=== PATIENT | male | born 1950 | race Caucasian/White ===

== ENCOUNTER 2022-08-25 07:40 | Outpatient (CLI) | payer MEDICARE, SELFPAY ==
--- NOTE | ~2022-08-25 | MR_ITS ---
EXAMINATION: MR lumbar spine wo con DATE: 08/25/2022 08:19 INDICATION: Low back pain. TECHNIQUE: Magnetic resonance imaging (MRI) of the lumbar spine was performed without intravenous con trast. Sequences included sagittal T2-weighted FSE, sagittal T2-weighted FS FSE, sagittal T1-weighted FSE, and axial T2-weighted FSE. COMPARISON: Lumbar spine radiographs 08/14/2022 FINDINGS: Bone alignment is normal. Vertebral body heights are normal. There is moderately decreased disc height at L1-L2 and mildly decreased disc height at L4-L5 and L5-S1. The distal spinal cord sign al intensity is normal. The conus medullaris is at L1. The following disc levels are specifically dis cussed: L1-L2: The disc is bulging and has an annular fissure. There is severe right and mild left facet join t osteoarthritis. There is mild bilateral neural foraminal stenosis. There is mild central canal sten osis. L2-L3: The disc is bulging. There is moderate right and mild left facet joint osteoarthritis. There i s mild bilateral neural foraminal stenosis. There is no central canal stenosis. L3-L4: The disc does not extend beyond the endplate margin. There is severe bilateral facet joint ost eoarthritis. There is mild bilateral neural foraminal stenosis. There is no central canal stenosis. L4-L5: The disc is bulging and has an annular fissure. There is severe bilateral facet joint osteoart hritis. There is mild bilateral neural foraminal stenosis. There is mild central canal stenosis. L5-S1: The disc is bulging and has an annular fissure. There is severe bilateral facet joint osteoart hritis. There is mild bilateral neural foraminal stenosis. There is mild central canal stenosis. IMPRESSION: 1. Moderate lumbar spondylosis. Reviewed, dictated and finalized at location A. OMIC DEVELOPMENT MANAGER
== END 2022-08-25 07:41 | disposition home or self-care (01) ==
PROVIDERS: PCP Family Medicine; Visit Provider Orthopaedic Surgery
DX: M48.00 Spinal stenosis, site unspecified (principal); M47.896 Other spondylosis, lumbar region
CPT/HCPCS: 72148

== ENCOUNTER 2025-03-26 13:26 | Outpatient (CLI) | payer MEDICARE, SELFPAY ==
--- NOTE | ~2025-03-26 | PE_ITS ---
EXAMINATION: PET_PETPSMAST_PT DATE: 03/26/2025 15:32 INDICATION: Prostate cancer TECHNIQUE: 5.255 mCi of Illucix Ga-68([id number]) was administered i.v. Low dose computed oliver graphy (CT) images were acquired from the base of the brain to the base of the brain to the proximal thighs for attenuation correction and anatomic localization. Positron emission tomography (PET) image s were acquired in the same distribution beginning 81 minutes after injection. Images including fused PET/CT images were reconstructed in axial, coronal, and sagittal planes. Automated exposure control technique was employed. The dose-length product was 1220.37mGy-cm. COMPARISON: None FINDINGS: Head/neck: Typical pattern of symmetric physiologic increased activity in the lacrimal, parotid and submandibula r glands as well as along the mucosa of the nasal and oral cavities, pharynx and hypopharynx. No path ologically enlarged cervical lymphadenopathy or suspicious foci of increased uptake in the visualized head or neck. Chest: Indeterminate 2 mm nodule in the right lung without evident activity, potentially a vijay fissural lym ph node along the minor fissure. There is also a small calcified likely para fissural lymph node antonio g the major fissure and a few calcified right hilar lymph nodes consistent with old granulomatous dis ease. No other suspicious pulmonary nodules or pleural effusion. Heart size is normal. No pericardial effusion. Thoracic aorta is normal in caliber. No pathologically enlarged or PSMA avid thoracic lymp hadenopathy. Abdomen/pelvis/proximal thighs: Physiologic renal accumulation and excretion of activity in the kidneys, bladder and along portions o f ureters. There is a small intensely PSMA avid nodule. Midline of the posterior aspect of the enlarg ed prostate suspicious for primary prostate cancer. Portions of the enlarged prostate are obscured by dense metallic streak artifact from a right total hip arthroplasty. Normal degree and slightly heter ogenous pattern of increased uptake throughout the liver and spleen without radiologic correlate or d ominant PSMA avid lesion. There is diffuse hepatic steatosis with focal sparing along the gallbladder fossa. The gallbladder, pancreas and bilateral adrenal glands are normal. Moderate uptake scattered throughout the bowels with typical duodenal and proximal jejunal predominance and without radiologic correlate, also likely physiologic. Mild scattered diverticulosis without adjacent from trace strandi ng to suggest diverticulitis. Moderate-sized fat-containing left inguinal hernia. Small bilateral hyd roceles. No other abnormal foci of increased uptake or pathologically enlarged lymphadenopathy in the abdomen, pelvis or proximal thighs. Musculoskeletal: Prominent mixed lytic and sclerotic subarticular lesion at the anterosuperior aspect of the left femo ral head which appears disproportionately 2 the otherwise mild osteoarthritis which is without abnorm al PSMA activity which appears chronic dating back to CT dated 06/06/2011 at which time similar lesion is seen at the contralateral right femoral head prior to the arthroplasty. Findings would be most co nsistent with bilateral osteonecrosis. No other suspicious lytic, blastic or abnormally PSMA avid bon e lesions. IMPRESSION: 1. Single focus of prominent uptake in the midline of the posterior prostate consistent with primary prostate cancer. No lesion suspicious for metastatic disease. 2. 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 3. Moderate-sized fat-containing left inguinal hernia with small bilateral hydroceles. 4. Indeterminate 2 mm nodule in the right lung along the minor fissure most likely a benign vijay fiss ural lymph node. If the patient is low risk for lung cancer, no follow-up is needed. If the patient i s high risk (i.e., history of smoking or asbestos or significant radiation exposure), optional follow -up chest CT could be considered at 12 months. Reviewed, dictated and finalized at location A. IMPRESSION: 1. Single focus of prominent uptake in the midline of the posterior prostate co nsistent with primary prostate cancer. No lesion suspicious for metastatic dise ase. 2. 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 3. Moderate-sized fat-containing left inguinal hernia with small bilateral hydr oceles. 4. Indeterminate 2 mm nodule in the right lung along the minor fissure most lik lilliam a benign vijay fissural lymph node. If the patient is low risk for lung canc er, no follow-up is needed. If the patient is high risk (i.e., history of smoki ng or asbestos or significant radiation exposure), optional follow-up chest CT could be considered at 12 months.
--- OUTSIDE RECORDS SUMMARY | 2025-03-26 13:29 | XMS_ITS | Clinical Summary ---
Author Organization [facility] Address [address] [place] [address] Care Team Providers Care House Officer Name Role Phone Yair Mitchell MD Primary Care Provider [phone] Allergies No known active allergies Medications finasteride 5 MG tablet Take 1 tablet (5 mg total) by mouth daily. Active losartan (COZAAR) 50 MG tablet Take 1 tablet (50 mg total) by mouth daily. Active atorvastatin (LIPITOR) 20 MG tablet Take 1 tablet (20 mg total) by mouth daily. Active chlorthalidone (HYGROTEN) 25 MG tablet Take 1 tablet (25 mg total) by mouth daily. Active montelukast (SINGULAIR) 10 MG tablet Take 1 tablet (10 mg total) by mouth nightly at bedtime. Active cetirizine (ZYRTEC) 10 MG tablet Take 1 tablet (10 mg total) by mouth daily. Active famotidine (PEPCID) 20 MG tablet Take 1 tablet (20 mg total) by mouth 2 (two) times daily as needed for Heartburn. Active Acetaminophen (TYLENOL) 325 MG Cap Take 1 tablet by mouth 2 (two) times a day. Active Cyanocobalamin (B-12) 2000 MCG Tab Take 1 tablet by mouth daily. Active aspirin EC 81 MG tablet Take 1 tablet (81 mg total) by mouth daily. Active losartan 25 MG tablet Take 1 tablet (25 mg total) by mouth daily. 03/03/20 25 Discontinu ed(Error) meloxicam (MOBIC) 15 MG tabletIndications :Other spondylosis with radiculopathy, lumbar region,Spinal stenosis of lumbar region without neurogenic claudication TAKE 1 TABLET (15 MG TOTAL) BY MOUTH DAILY. 30 tablet 1 3 03/03/20 25 Discontinu ed(Error) meloxicam (MOBIC) 15 MG tabletIndications :Lumbar radiculopathy Take 1 tablet (15 mg total) by mouth daily. 30 tablet 3 03/03/20 25 Discontinu ed(Error) Active Problems Problem Noted Date Diagnosed Date Neck pain 11/30/2023 Chronic midline low back pain without sciatica 0 11/30/2023 Encounters Date Type Department Care Team Description 03/11/2025 12:50 PM CDT - 03/11/2025 1:40 PM CDT Surgery [facility] [place] [address] Jeff Azul MD TRANSRECTAL ULTRASOUND FUSION GUIDED PROSTATE BIOPSY 03/11/2025 12:46 PM CDT Anesthesia Event [facility] [place] [address] Rosey Wahl MD Jarvis, Brittany L, DIRECTOR OF INDUSTRIAL RELATIONS 03/11/2025 11:10 AM CDT - 03/11/2025 2:17 PM CDT Hospital Encounter [facility] [place] [address] Jeff Azul MD Discharge Disposition: Home or Self Care (Routine Discharge) 03/11/2025 Travel 01/05/2025 10:25 AM CDT - 01/05/2025 11:59 PM CDT [place] [address] Isela Boland III, MD Discharge Disposition: Home or Self Care (Routine Discharge) 01/05/[address] [place] [address] Isela Boland III, MD 01/05/2025 Travel from Last 3 Months Social History Tobacco Use Types Packs/Day Years Used Date Smoking Tobacco: Former Cigarettes Smokeless Tobacco: Never Tobacco Cessation:Counseling Given: Not Answered Comments:Quit 40 years ago, smoked 5 years Alcohol Use Standard Drinks/Week Comments Not Currently 0 (1 standard drink = 0.6 oz pur e alcohol) Sex and Gender Information Value Date Recorded Sex Assigned at Male 03/11/2025 11:08 AM CDT Legal Sex Male 12:25 PM CDT Gender Identity Not on file Sexual Orientation Not on file Last Filed Vital Signs Vital Sign Reading Time Taken Comments Blood Pressure 109/77 03/11/2025 2:17 PM CDT Pulse 55 03/11/2025 2:17 PM CDT Temperature 36.2 C (97.2 F) 03/11/2025 2:17 PM CDT Respiratory Rate 16 03/11/2025 1:45 PM CDT Oxygen Saturation 97% 03/11/2025 2:17 PM CDT Inhaled Oxygen Concentration - - Weight 90.7 kg (199 lb 15.3 oz) 025 11:35 AM CDT Height 175.3 cm (5' 9) 03/11/2025 11:3 5 AM CDT Body Mass Index 29.53 03/11/2025 11:35 AM CDT Plan of Treatment Health Maintenance Due Date Last Done Comments Hepatitis C 02/04/1970 DTaP, Tdap and Td Vaccines ( 1 - Tdap) 02/04/1971 Pneumococcal Vaccine: 50+ Years (1 of 1 - PCV) 02/04/2002 Zoster Vaccines (1 of 2) 02/04/2002 Annual Medicare Wellness Visit 02/04/2017 COVID-19 Vaccine ( - 2023-2 5 season) 2024 RSV Immunization or 60+ Years (1 - 1-dose 75+ series) 02/04/2027 Colorectal Cancer Screening Colonoscopy (10 Years) 02/22/2031 02/22/2021, 02/22/2021 AAA SCREENING Completed 02/08/2024, 01/08/2023, 09/22/2022 Meningococcal B Vaccine Aged Out No l onger eligible based on patient's age to complete this topic Meningococcal Vaccine Aged Out No sae qasim eligible based on patient's age to complete this topic RSV Immunizations Under 20 Months Aged Out No longer eligible b ased on patient's age to complete this topic Procedures Procedure Name Priority Date/Time Associated Diagnosis Comments BIOPSY OF PROSTATE,NEEDLE/PUN CH 03/11/2025 12:46 PM CDT PSA ELEVATION R97.20 Case Notes SCHED BY FAX ON 03/03/25 [facility] PHONE ASSESS Special Needs [facility] #[id number] PATHOLOGY Routine 03/11/2025 12:00 AM CDT PROSTATE SPECIFIC ANTIGEN,TOTAL Routine 01/05/2025 10:39 AM CDT BPH with elevated PSA CT CHEST WO CON Routine 02/08/2024 6:54 AM CDT Lung nodule COLONOSCOPY 02/22/2021 11:36 AM CDT from Last 3 Months or Most Recently Relevant to Health Maintenance Results * Pathology (03/11/2025 12:00 AM CDT) PATHOLOGY [facility] Department of Laboratory Medicine [address] [place] [id number] , extension [id number] Pathology Report Surgical Pathology Report Name: BRETT ALMARAZ Specimen #: [id number] Age: 5 1950 (Age: 75) Location: [facility] Sex: M Procedure Date: 03/11/2025 Hospital #: [id number] Date Received: 03/12/2025 Date Reported: 03/16/2025 Provider: JEFF AZUL MD Source: A: Prostate, right lateral base, needle biopsy B: Prostate, right medial base, needle biopsy C: Prostate, right lateral mid, needle biopsy D: Prostate, right medial mid, needle biopsy E: Prostate, right lateral apex, needle biopsy F: Prostate, right medial apex, needle biopsy G: Prostate, left lateral base, needle biopsy H: Prostate, left medial base, needle biopsy I: Prostate, left lateral mid, needle biopsy J: Prostate, left medial mid, needle biopsy K: Prostate, left lateral apex, needle biopsy L: Prostate, left medial apex, needle biopsy M: Prostate, KAREN #1, needle biopsy Clinical History: Elevated PSA FINAL DIAGNOSIS: A. Prostate, right lateral base, needle biopsy: - Benign prostatic tissue. B. Prostate, right medial base, needle biopsy: - Acinar adenocarcinoma, grade group 4 (Anthony score 4+4 = 8), in 1 of 1 core, 40% of prostatic tissue. C. Prostate, right lateral mid, needle biopsy: - Benign prostatic tissue. D. Prostate, right medial mid, needle biopsy: - Benign prostatic tissue. E. Prostate, right lateral apex, needle biopsy: - Benign prostatic tissue. F. Prostate, right medial apex, needle biopsy: - Acinar adenocarcinoma, grade group 3 (Newport score 4+3 = 7), in 1 of 1 core, 30% of prostatic tissue. G. Prostate, left lateral base, needle biopsy: - Benign prostatic tissue. H. Prostate, left medial base, needle biopsy: - Benign prostatic tissue. I. Prostate, left lateral mid, needle biopsy: - Benign prostatic tissue. J. Prostate, left medial mid, needle biopsy: - Benign prostatic tissue. K. Prostate, left lateral apex, needle biopsy: - Benign prostatic tissue. L. Prostate, left medial apex, needle biopsy: - Benign prostatic tissue. M. Prostate, KAREN #1, needle biopsy: - Acinar adenocarcinoma, grade group 3 (Newport score 4+3 = 7), in 2 of 3 cores 30% of prostatic tissue. Gross Description: A. Received in formalin, labeled with a patient label and as is a 1.1 cm long, less than 0.1 cm diameter core of white-marte tissue. The specimen is entirely submitted in cassette A1. B. Received in formalin, labeled with a patient label and as right medial base is a 1.3 cm long, less than 0.1 cm diameter core of white-marte tissue. The specimen is entirely submitted in cassette B1. C. Received in formalin, labeled with a patient label and as right lateral mid is a 1.1 cm long, less than 0.1 cm diameter core of white-marte tissue. The specimen is entirely submitted in cassette C1. D. Received in formalin, labeled with a patient label and as right medial mid is a 1.5 cm long, less than 0.1 cm diameter core of white-marte tissue. The specimen is entirely submitted in cassette D1. E. Received in formalin, labeled with a patient label and as right lateral apex are 3 less than 0.1 cm diameter cores of white-marte tissue ranging from 0.2 to 0.6 cm in length. The specimen is entirely submitted in cassette E1. F. Received in formalin, labeled with a patient label and as right medial apex is a 1.4 cm long, less than 0.1 cm diameter core of white-marte tissue. The specimen is entirely submitted in cassette F1. G. Received in formalin, labeled with a patient label and as left lateral base is a 1.3 cm long, less than 0.1 cm diameter core of white-marte tissue. The specimen is entirely submitted in cassette G1. H. Received in formalin, labeled with a patient label and as left medial base is a 1.3 cm long, less than 0.1 cm diameter core of white-marte tissue. The specimen is entirely submitted in cassette H1. I. Received in formalin, labeled with a patient label and as left lateral mid is a 1.7 cm long, less than 0.1 cm diameter core of white-marte tissue. The specimen is entirely submitted in cassette I1. J. Received in formalin, labeled with a patient label and as left medial mid is a 1.6 cm long, less than 0.1 cm diameter core of white-marte tissue. The specimen is entirely submitted in cassette J1. K. Received in formalin, labeled with a patient label and as left lateral apex is a 1.4 cm long, less than 0.1 cm diameter core of white-marte tissue. The specimen is entirely submitted in cassette K1. L. Received in formalin, labeled with a patient label and as left medial apex is a 1.9 cm long, less than 0.1 cm diameter core of white-marte tissue. The specimen is entirely submitted in cassette L1. M. Received in formalin, labeled with a patient label and as region of interest #1 are 3 less than 0.1 cm diameter cores of white-marte tissue ranging from 0.3 to 0.8 cm in length. The specimen is entirely submitted in cassette M1. Gross examination (when applicable), interpretation, and sign out were performed at [facility], [address] [place] [address]. Electronically Signed Out RACHEL XIAO MD [facility] TISSUE PROSTATE / Unknown 12:23 PM CDT Tissue specimen (specimen) PROSTATE / Unknown 03/11/2025 12:23 PM CDT Tissue specimen (specimen) PROSTATE / Unknown 03/11/2025 12:23 PM CDT Tissue specimen (specimen) PROSTATE / Unknown 03/11/2025 12:23 PM CDT Tissue specimen (specimen) PROSTATE / Unknown 03/11/2025 12:23 PM CDT Tissue specimen (specimen) PROSTATE / Unknown 03/11/2025 12:23 PM CDT Tissue specimen (specimen) PROSTATE / Unknown 03/11/2025 12:23 PM CDT Tissue specimen (specimen) PROSTATE / Unknown 03/11/2025 12:23 PM CDT Tissue specimen (specimen) PROSTATE / Unknown 03/11/2025 12:23 PM CDT Tissue specimen (specimen) PROSTATE / Unknown 03/11/2025 12:23 PM CDT Tissue specimen (specimen) PROSTATE / Unknown 03/11/2025 12:23 PM CDT Tissue specimen (specimen) PROSTATE / Unknown 03/11/2025 12:23 PM CDT Tissue specimen (specimen) PROSTATE / Unknown 03/11/2025 12:26 PM CDT Jeff Azul MD PATHOLOGY/CYTOLOGY ORDERABLES Fi nal Result Performing Organization Address City/[facility]/ZIP Co de Phone Number [facility] [address] [place] [address], [place] [phone] * PROSTATE SPECIFIC ANTIGEN, DIAG (01/05/2025 10:39 AM CDT) PSA 3.88 <4.00 NG/ML 01/05/2025 11:39 AM CDT [facility] Comment: ASSAY PERFORMED BY ENZYME IMMUNOASSAY METHODOLOGY USING SIEMENS DIMENSION REAGENT. PATIENT RESULTS DETERMINED BY ASSAYS FROM DIFFERENT MANUFACTURERS AND/OR BY DIFFERENT METHODS MAY NOT BE COMPARABLE. 01/05/2025 10:3 9 AM CDT Isela Boland III, MD LABORATORY Final Re sult [facility] [address] [place] [address], [place] [phone] * CT CHEST WO CON (02/08/2024 6:54 AM CDT) Anatomical Region Laterality Modality Chest Computed Tomogra phy 02/12/2024 9:49 AM CDT Impressions 02/12/2024 9:58 AM CDT IMPRESSION: 1. No acute intrathoracic process identified. 2. Benign pulmonary findings as described. No further workup or surveillance is required. 3. Coronary artery disease. 4. Redemonstrated hepatic steatosis. Ordered By: YAIR MITCHELL Interpreted By: Sarath Ku MD, 02/12/2024 9:49 AM Narrative 02/12/2024 9:58 AM CDT Examination: CT of the chest without contrast. Exam time: 0651 hours. Clinical history: Follow-up of pulmonary nodule. Comparison: CT of the abdomen and pelvis, 01/08/2023. Technique: Spiral scanning was performed through the chest without contrast. Sagittal and coronal reconstructions were performed from the data set. A dose lowering technique was used for this procedure, which may include, but is not limited to, dose reduction techniques, automated exposure control, the use of iterative reconstruction and ALARA/Image Gently techniques. Findings: There is minimal calcific coronary artery disease and atherosclerotic calcification of the aorta. The heart and great vessels are otherwise unremarkable for the noncontrast technique. There are calcified right hilar lymph nodes, compatible with old granulomatous disease. No hilar or mediastinal adenopathy is identified. No endobronchial abnormality is identified. There are scattered calcified pulmonary granulomas. Stable sub-4 mm pleural-based noncalcified nodules in the inferolateral left lower lobe are considered benign based on current Fleischner Society guidelines, presumably granulomas. These are annotated on the lung window series images. Allowing for minor respiratory motion, the lungs are otherwise clear. No pleural abnormalities are seen. The chest wall structures appear intact. The included sections through the upper abdomen redemonstrate calcified splenic granuloma and hepatic steatosis. Procedure Note Sarath Ku MD - 02/12/2024 Examination: CT of the chest without contrast. Exam time: 0651 hours. Clinical history: Follow-up of pulmonary nodule. Comparison: CT of the abdomen and pelvis, 01/08/2023. Technique: Spiral scanning was performed through the chest withoutcontrast. Sagittal and coronal reconstructions were performed from thedata set. A dose lowering technique was used for this procedure, whichmay include, but is not limited to, dose reduction techniques, automatedexposure control, the use of iterative reconstruction and ALARA/ImageGently techniques. Findings: There is minimal calcific coronary artery disease andatherosclerotic calcification of the aorta. The heart and great vesselsare otherwise unremarkable for the noncontrast technique. There arecalcified right hilar lymph nodes, compatible with old granulomatousdisease. No hilar or mediastinal adenopathy is identified. Noendobronchial abnormality is identified. There are scattered calcifiedpulmonary granulomas. Stable sub-4 mm pleural-based noncalcified nodulesin the inferolateral left lower lobe are considered benign based oncurrent Fleischner Society guidelines, presumably granulomas. These areannotated on the lung window series images. Allowing for minor respiratorymotion, the lungs are otherwise clear. No pleural abnormalities are seen.The chest wall structures appear intact. The included sections through theupper abdomen redemonstrate calcified splenic granuloma and hepaticsteatosis. IMPRESSION: 1. No acute intrathoracic process identified. 2. Benign pulmonary findings as described. No further workup orsurveillance is required. 3. Coronary artery disease. 4. Redemonstrated hepatic steatosis. Ordered By: YAIR MITCHELL Interpreted By: Sarath Ku MD, 02/12/2024 9:49 AM Yair Mitchell MD CT Final Resul t * COLONOSCOPY (02/22/2021 11:36 AM CDT) Davy Heaton MD GI PROCEDURE ORDERABLES Final Result from Last 3 Months or Most Recently Relevant to Health Maintenance Insurance MEDICARE [facility] Care Teams House Officer Relationship Specialty Start Date End Date Yair Mitchell MD [address] [place] [id number] PCP - General FAMILY PRACTICE 05/13/20
== END 2025-03-26 13:27 | disposition home or self-care (01) ==
PROVIDERS: PCP Family Medicine; Visit Provider Urology
DX: C61 Malignant neoplasm of prostate (principal); K40.90 Unilateral inguinal hernia, without obstruction or gangrene, not specified as recurrent; N43.3 Hydrocele, unspecified; R91.1 Solitary pulmonary nodule
CPT/HCPCS: 78815; A9596

== ENCOUNTER 2025-05-25 11:47 | Outpatient (CLI) | payer MEDICARE, SELFPAY ==
--- NOTE | ~2025-05-25 | DEXA_ITS ---
Bone Density Report Name: BRETT ALMARAZ Age: 75 Sex: Male Ethnicity: White Date of : 1950 Indication: screening for osteoporosis; cancer; Referring Provider: RYAN, ANGEL Marie Study: Bone densitometry was performed. Exam Date: May 25, 2025 Accession number: [id number] Bone Density: Region BMD T-score Z-score Classification AP Spine(L1-L4) 1.408 2.9 3.9 Normal Femoral Neck (Left) 1.031 0.7 2.0 Normal Total Hip (Left) 1.343 2.1 2.8 Normal World Health Organization criteria for BMD impression classify patients as: Normal (T-score at or above -1.0), Osteopenia (T-score between -1.0 and -2.5), or Osteoporosis (T-score at or below -2.5). 10-year Fracture Risk: FRAX not reported because: All T-scores for Spine Total, Hip Total, Femoral Neck at or above -1.0 Clinical Information Provided by Patient: Has the following medical conditions: Cancer Patient maximum height was 69 No regular weight bearing exercise Drinks caffeinated beverages Impression: The patient has normal bone mass. Discussion: BONE DENSITY IS ABOVE THE MINIMUM DESIRABLE LEVEL AT ALL SKELETAL SITES TESTED. This patient?s bone mineral density is above the minimum desirable level (T-score -1.0 or better) at all sites measured. The patient should follow a healthful lifestyle (good nutrition with adequate calcium and vitamin D, and appropriate weight-bearing exercise). Follow-Up: Consider repeating this study in 5 years or sooner if there is some new clinical indication. Reported by: NEGRO on 05/25/2025 12:16:00 PM. Reviewed, dictated and finalized at location A.
== END 2025-05-25 11:48 | disposition home or self-care (01) ==
LOC: CHSIMG 11:49
PROVIDERS: PCP Family Medicine; Visit Provider Nurse Practitioner
DX: Z51.81 Encounter for therapeutic drug level monitoring (principal); Z79.818 Long term (current) use of other agents affecting estrogen receptors and estrogen levels
CPT/HCPCS: 77080